=== PATIENT | female | born 1995 | race American Indian/Alaskan Native ===

== ENCOUNTER 2018-01-27 17:20 | Emergency (ER) | payer OTHER ==
[2018-01-27 17:22] VITALS: BMI 25.3
[2018-01-27] MEDS ORDERED: Sodium Chloride 0.9% 1,000 ML IV STA (17:40)
--- NOTE | 2018-01-27 18:10 | ED PDOC ---
Addendum entered and electronically signed by Tera Momin PA-C 01/30/18 17:37: Addendum Addendum: 01/30/18 17:36 Pt. discharge home with 3rd generation of cephalosporin, study show sensitive to the 1st and 4th generation and macrobid, discontinue vantin and start macrobid, pt. awared. I sent the macrobid to her desired pharmacy. Pt. stated that she feels well. Original Note: Arrival/HPI - General Historian: Patient - History of Present Illness Narrative History of Present Illness (Text): 01/27/18 17:47 Patient is a ([age]ins) with no past medical history presenting to the emergency room with a complaint of lower abdominal and right sided low back pain x 3 days. The right sided low back pain has been constant and getting progressively worse. The pain is sharp in nature and radiates up right side. The pain is worse with movement. She denies any trauma and has never experienced t his pain before. The abdominal pain is similar to her menstrual cramps but she recently complete her menstrual cycle 3 days ago and the pain started upon its completion. She has been urinating more frequently for the past 3-4 days but denies any burning or pain with urination. Denies vaginal bleeding or discharge. She is unsure if she is . Denies fevers, chills, nauseous, vomiting, diarrhea, constipation, chest pain, shortness of breath, headaches, vision changes, runny nose, sore throat, numbness or tingling. LMP: 01/22/18 Time/Duration: < week (3 days) Symptom Onset: Gradual Symptom Course: Worsening Quality: Stabbing <Trevor Florence - Last Filed: 01/27/18 18:35> <Lex Springer - Last Filed: 01/28/18 11:16> - General Chief Complaint: Abdominal Pain Time Seen by Provider: 01/27/18 17:21 Past Medical History - Provider Review Nursing Documentation Reviewed: Yes <Trevor Florence - Last Filed: 01/27/18 18:35> Family/Social History - Physician Review Nursing Documentation Reviewed: Yes <Trevor Florence - Last Filed: 01/27/18 18:35> Family/Social History: Unknown Family HX <Lex Springer - Last Filed: 01/28/18 11:16> Allergies/Home Meds <Trevor Florence - Last Filed: 01/27/18 18:35> <Lex Springer - Last Filed: 01/28/18 11:16> Allergies/Adverse Reactions: Allergies No Known Allergies Allergy (Verified 01/28/18 08:18) Review of Systems - Physician Review All systems were reviewed & negative as marked: Yes - Review of Systems Constitutional: Normal. absent: Fatigue, Fevers Eyes: Normal. absent: Vision Changes ENT: Normal. absent: Sore Throat, Rhinorrhea Respiratory: Normal. absent: SOB, Wheezing Cardiovascular: Normal. absent: Chest Pain, Edema Gastrointestinal: Abdominal Pain (suprapubic). absent: Constipation, Diarrhea, Nausea, Vomiting Genitourinary Female: Frequency (increased). absent: Dysuria, Hematuria, Vaginal Bleeding, Vaginal Discharge Musculoskeletal: Back Pain (right low back pain). absent: Neck Pain Skin: Normal. absent: Rash Neurological: Normal. absent: Headache, Dizziness Endocrine: Normal. absent: Diaphoresis Hemo/Lymphatic: Normal Psychiatric: Normal. absent: Anxiety <Trevor Florence - Last Filed: 01/27/18 18:35> Physical Exam Vital Signs Reviewed: Yes Temperature: Febrile (low) Blood Pressure: Normal Pulse: Tachycardic Respiratory Rate: Normal Appearance: Positive for: Well-Appearing, Non-Toxic Pain Distress: Mild Mental Status: Positive for: Alert and Oriented X 3 - Systems Exam Head: Present: Atraumatic, Normocephalic Extroacular Muscles: Present: EOMI Conjunctiva: Present: Normal Mouth: Present: Moist Mucous Membranes Nose (External): Present: Atraumatic Nose (Internal): Present: No Active Bleeding, Moist Neck: Present: Normal Range of Motion. No: JVD, Lymphadenopathy Respiratory/Chest: Present: Clear to Auscultation, Good Air Exchange. No: Respiratory Distress, Accessory Muscle Use, Wheezes, Rales, Rhonchi Cardiovascular: Present: Regular Rate and Rhythm, Normal S1, S2. No: Murmurs Abdomen: Present: Tenderness (suprapubic). No: Distention, Peritoneal Signs, Rebound, Guarding, McBurney's Point Tender, Rovsing's Sign Present Back: Present: Paraspinal Tenderness (right side, lumbar region), Other (tender in the posterior axillary line). No: CVA Tenderness, Midline Tenderness Upper Extremity: Present: Normal Inspection, NORMAL PULSES. No: Cyanosis, Edema Lower Extremity: Present: Normal Inspection, NORMAL PULSES. No: Edema, CALF TENDERNESS Neurological: Present: GCS=15, Speech Normal, Motor Func Grossly Intact Skin: Present: Warm, Dry, Normal Color. No: Rashes Lymphatic: No: Cervical Adenopathy Psychiatric: Present: Alert, Oriented x 3, Normal Insight, Normal Concentration <Trevor Florence - Last Filed: 01/27/18 18:35> Vital Signs Temp Pulse Resp BP Pulse Ox 01/27/18 17:20 99.8 F H 103 H 18 124/72 100 <Lex Springer - Last Filed: 01/28/18 11:16> Medical Decision Making ED Course and Treatment: 01/27/18 18:13 Patient is a (twins) with no past medical history presenting to the emergency room with a complaint of lower abdominal and right sided low back pain x 3 days. Physical exam reveals patient is tender to palpation on right side of low back with radiation of pain up posterior axillary line and suprapubic tenderness. Suspected musculoskeletal dysfunction and possible UTI labs Tylenol and NS 1 L bolus re-assess - Medication Orders Current Medication Orders: Sodium Chloride (Sodium Chloride 0.9%) 1,000 mls @ 1,000 mls/hr IV .Q1H STA Stop: 01/27/18 18:39 Discontinued Medications Acetaminophen (Tylenol 325mg Tab) 975 mg PO STAT STA Stop: 01/27/18 17:41 <Trevor Florence - Last Filed: 01/27/18 18:35> ED Course and Treatment: 01/27/18 20:09 guiac neg pt states known h/o of anemia. denies gi bleed. 01/28/18 11:15 pt seen with [facility]. ro uti vs pyelo vs stone. labs no leukocytosis. urine treated pt pain improved. states comfortable with outpt tiral for pyelo. strict return precautions advised. - Lab Interpretations Lab Results: 01/27/18 19:43 01/27/18 18:56 Lab Results 01/27/18 19:43: PT 14.2 H, INR 1.24, APTT 27.9 01/27/18 19:43: WBC 8.2, RBC 3.56, Hgb 9.8 L, Hct 30.0 L, MCV 84.3, MCH 27.5, MCHC 32.7, RDW 13.7, Plt Count 271, MPV 10.0, Gran % 73.4 H, Lymph % (Auto) 14.9 L, [place] % (Auto) 11.5 H, Eos % (Auto) 0.1 L, Baso % (Auto) 0.1, Gran # 6.01, Lymph # (Auto) 1.2, [place] # (Auto) 0.9 H, Eos # (Auto) 0.0, Baso # (Auto) 0.01 01/27/18 18:56: Sodium 137, Potassium 3.7, Chloride 104, Carbon Dioxide 25, Anion Gap 12, BUN 6 L, Creatinine 0.8, Est GFR ( Amer) > 60, Est GFR (Non-Af Amer) > 60, Random Glucose 105, Calcium 8.8, Magnesium 2.0, Total Bilirubin 1.5 H, AST 12 L, ALT 20, Alkaline Phosphatase 71, Total Protein 7.3, Albumin 3.8, Globulin 3.4, Albumin/Globulin Ratio 1.1, Lipase 13 L 01/27/18 18:21: Urine Color Light yellow, Urine Appearance Cloudy, Urine pH 6.0, Ur Specific [place] 1.020, Urine Protein 100 H, Urine Glucose (UA) Negative, Urine Ketones 40 H, Urine Blood Moderate H, Urine Nitrate Positive H, Urine Bilirubin Negative, Urine Urobilinogen 0.2, Ur Leukocyte Esterase Large H, Urine RBC 5 - 10, Urine WBC Tntc, Ur Epithelial Cells 3 - 4, Urine Bacteria Small, Urine HCG, Qual Negative - RAD Interpretation Radiology Orders: 01/27/18 18:40 ABD & PELVIS W/O PO OR IV CONT [CT] Stat - Medication Orders Current Medication Orders: Discontinued Medications Acetaminophen (Tylenol 325mg Tab) 975 mg PO STAT STA Stop: 01/27/18 17:41 Last Admin: 01/27/18 18:23 Dose: 975 mg MAR Pain/Vitals Document 01/27/18 18:23 EQ (Rec: 01/27/18 18:23 EQ [id number]) Pain Reassessment Is This A Pain ReAssessment? No Sleep Is patient sleeping during reassessment? No Presence of Pain Presence of Pain Yes Sodium Chloride (Sodium Chloride 0.9%) 1,000 mls @ 1,000 mls/hr IV .Q1H STA Stop: 01/27/18 18:39 Last Admin: 01/27/18 18:22 Dose: 1,000 mls/hr eMAR Start Stop Document 01/27/18 18:22 EQ (Rec: 01/27/18 18:22 EQ [id number]) Intravenous Solution Start Date 01/27/18 Start Time 18:22 Ceftriaxone Sodium (Rocephin 1 Gram Ivpb) 1 gm in 100 mls @ 100 mls/hr IVPB STAT STA; Protocol Stop: 01/27/18 20:03 Last Admin: 01/27/18 19:58 Dose: 100 mls/hr eMAR Start Stop Document 01/27/18 19:58 EQ (Rec: 01/27/18 19:58 EQ [id number]) Intravenous Solution Start Date 01/27/18 Start Time 19:58 <Lex Springer - Last Filed: 01/28/18 11:16> Disposition/Present on Arrival - Present on Arrival History of DVT/PE: No History of Uncontrolled Diabetes: No Urinary Catheter: No History of Decub. Ulcer: No History Surgical Site Infection Following: None <Trevor Florence - Last Filed: 01/27/18 18:35> - Present on Arrival Any Indicators Present on Arrival: No - Disposition Have Diagnosis and Disposition been Completed?: Yes Disposition Time: 08:00 <Lex Springer - Last Filed: 01/28/18 11:16> - Disposition Diagnosis: Pyelonephritis, Abdominal pain, Ovarian cyst Disposition: HOME/ ROUTINE Condition: STABLE Discharge Instructions (ExitCare): Urinary Tract Infections in Adults, Ovarian Cysts, Kidney Infection Additional Instructions: please follow up with your doctor. return to er with worsening symptoms or concerns. Prescriptions: RX: Cefpodoxime [Vantin] 100 mg PO BID #20 tab Referrals: [facility] [Outside] - Follow up with primary [facility] at [facility] [place] [Outside] - Follow up with primary [facility] [Outside] - Follow up with [facility] [Outside] - Follow up with primary Jluis Peña MD [Primary Care Provider] - Follow up with primary Forms: [employer] (Croatian)
[2018-01-27 18:28] VITALS: RESP 18; O2SAT 100
[2018-01-27 18:59] LABS: URINE BILIRUBIN NEGATIVE (NEGATIVE); URINE BLOOD MODERATE (NEGATIVE); URINE GLUCOSE (UA) NEGATIVE (NEGATIVE); URINE LEUKOCYTE ESTERASE LARGE Leu/uL (NEGATIVE); URINE PROTEIN 100 mg/dL (<30 mg/dL); URINE UROBILINOGEN 0.2 E.U./dL (<1 E.U./dL)
[2018-01-27 19:03] LABS: URINE APPEARANCE CLOUDY (CLEAR); URINE COLOR LIGHT YELLOW (YELLOW)
[2018-01-27] MEDS ORDERED: cefTRIAXone 1 gm 1 GM/100 ML BAG IVPB STA (19:04)
[2018-01-27 19:14] LABS: URINE BACTERIA SMALL (NEG); URINE WBC TNTC /hpf (0-6)
[2018-01-27 19:16] LABS: ALB/GLOB RATIO 1.1 (1.1-1.8); ALBUMIN 3.8 g/dL (3.0-4.8); ALT/SGPT 20 U/L (7-56); AST/SGOT 12 U/L (14-36); BLOOD UREA NITROGEN 6 mg/dL (7-21); CALCIUM 8.8 mg/dL (8.4-10.5); GFR NON-AFRICAN AMERICAN > 60; LIPASE 13 U/L (23-300)
[2018-01-27 19:16] LABS: HCG,QUALITATIVE URINE NEGATIVE (NEGATIVE)
[2018-01-27 20:01] LABS: BASO # 0.01 K/mm3 (0.0-2.0); BASO % 0.1 % (0.0-3.0); EOS % 0.1 % (1.5-5.0); GRAN # 6.01 (1.4-6.5); GRAN % 73.4 % (50.0-68.0); HEMOGLOBIN 9.8 g/dL (12.0-16.0); LYMPH # 1.2 (1.2-3.4); LYMPH % 14.9 % (22.0-35.0); MEAN CELL VOLUME 84.3 fl (80.0-105.0); MEAN CORPUSCULAR HEMOGLOBIN 27.5 pg (25.0-35.0); MEAN CORPUSCULAR HGB CONC 32.7 g/dl (31.0-37.0); MONO # 0.9 (0.1-0.6); MONO % 11.5 % (1.0-6.0); RBC 3.56 10^6/uL (3.5-6.1); RED CELL DISTRIBUTION WIDTH 13.7 % (11.5-14.5); WHITE BLOOD COUNT 8.2 10^3/ul (4.5-11.0)
[2018-01-27 20:05] LABS: INR 1.24; PROTHROMBIN TIME 14.2 SECONDS (9.4-12.5)
[2018-01-27 20:06] LABS: PARTIAL THROMBOPLASTIN TIME 27.9 Seconds (25.1-36.5)
[2018-01-27 20:45] VITALS: BP 106/55; PULSE 93; TEMP 98.6
--- NOTE | 2018-01-28 09:58 | CT ---
Date of service: 01/27/2018 PROCEDURE: CT Abdomen and Pelvis without intravenous contrast HISTORY: right flank pain COMPARISON: None. TECHNIQUE: Technique. Contrast dose: Radiation dose: Total exam DLP = 334.57 mGy-cm. This CT exam was performed using one or more of the following dose reduction techniques: Automated exposure control, adjustment of the mA and/or kV according to patient size, and/or use of iterative reconstruction technique. FINDINGS: LOWER THORAX: Unremarkable. LIVER: Unremarkable. No gross lesion or ductal dilatation. GALLBLADDER AND BILE DUCTS: Unremarkable. PANCREAS: Unremarkable. No gross lesion or ductal dilatation. SPLEEN: Unremarkable. ADRENALS: Unremarkable. No mass. KIDNEYS AND URETERS: Unremarkable. No hydronephrosis. No solid mass. VASCULATURE: Unremarkable. No aortic aneurysm. BOWEL: Unremarkable. No obstruction. No gross mural thickening. APPENDIX: Unremarkable. Normal appendix. PERITONEUM: There is a small amount of fluid in the cul-de-sac consistent with recent cyst rupture. Umbilical hernia containing nonobstructed large bowel. LYMPH NODES: Unremarkable. No enlarged lymph nodes. BLADDER: Unremarkable. REPRODUCTIVE: Unremarkable. BONES: No acute fracture. OTHER FINDINGS: The report concurs with the preliminary [facility] report IMPRESSION: No acute findings. No evidence of urolithiasis. Fluid in the cul-de-sac consistent with recent cyst rupture. Umbilical hernia containing nonobstructed large bowel.
== END 2018-01-27 21:00 | disposition home or self-care (01) ==
LOC: ED 17:20 → MERGE 17:20 → ED 21:00
DX: N12 Tubulo-interstitial nephritis, not specified as acute or chronic (principal); N83.209 Unspecified ovarian cyst, unspecified side; R10.9 Unspecified abdominal pain
CPT/HCPCS: 74176; 80053; 81001; 83690; 83735; 84703; 85025; 85610; 85730; 87086; 87181; 96374; 99283; J0696; J7030

== ENCOUNTER 2018-06-23 12:33 | Emergency (ER) | payer OTHER | END 2018-06-23 15:40 | disposition home or self-care (01) | LOC: ED 12:33 ==

== ENCOUNTER 2018-06-26 13:45 | Emergency (ER) | payer OTHER ==
[2018-06-26 13:45] VITALS: BMI 25.3
[2018-06-26 14:05] VITALS: BP 118/61; PULSE 80; RESP 18; TEMP 99.1; O2SAT 100
--- NOTE | 2018-06-26 19:17 | ED PDOC ---
Arrival/HPI - General Chief Complaint: Wound Check Time Seen by Provider: 06/26/18 13:48 Historian: Patient - History of Present Illness Narrative History of Present Illness (Text): 22 y/o tobacco smoking female with no significant PMH presents to the ED for wound check and packing removal s/p I&D here on 06/23. Pt is taking her antibiotics as prescribed. Admits to reduction in pain, but has discomfort when sitting. She has changed the dressing daily. Denies any significant wound drainage, worsening erythema, fever, chills, nausea, vomiting, diarrhea, rectal pain, dizziness, or any other associated complaints. Past Medical History - Provider Review Nursing Documentation Reviewed: Yes - Infectious Disease Hx of Infectious Diseases: None - Reproductive Menopause: No - Cardiac Hx Cardiac Disorders: No - Pulmonary Hx Respiratory Disorders: No - Neurological Hx Neurological Disorder: No - HEENT Hx HEENT Disorder: No - Renal Hx Renal Disorder: No - Endocrine/Metabolic Hx Endocrine Disorders: No - Hematological/Oncological Hx Blood Disorders: No - Integumentary Hx Dermatological Disorder: No - Musculoskeletal/Rheumatological Hx Musculoskeletal Disorders: No - Gastrointestinal Hx Gastrointestinal Disorders: No - Genitourinary/Gynecological Hx Genitourinary Disorders: Yes Hx Urinary Tract Infection: Yes - Psychiatric Hx Psychophysiologic Disorder: No Hx Substance Use: No - Surgical History Hx Section: Yes - Anesthesia Hx Anesthesia: No Hx Anesthesia Reactions: No Hx Malignant Hyperthermia: No Family/Social History - Physician Review Nursing Documentation Reviewed: Yes Family/Social History: No Known Family HX Smoking Status: Heavy Smoker > 10 Cigarettes Daily Hx Alcohol Use: No Hx Substance Use: No Allergies/Home Meds Allergies/Adverse Reactions: Allergies No Known Allergies Allergy (Verified 06/23/18 12:57) Review of Systems - Review of Systems Constitutional: Normal. absent: Fevers Eyes: Normal. absent: Vision Changes, Photophobia Respiratory: Normal. absent: SOB, Cough Cardiovascular: Normal. absent: Chest Pain, Palpitations Gastrointestinal: Normal. absent: Abdominal Pain, Stool Changes, Nausea, Vomiting, Appetite Changes Genitourinary Female: Normal. absent: Dysuria, Frequency Musculoskeletal: Normal. absent: Arthralgias, Back Pain, Neck Pain Skin: Abscess Neurological: Normal. absent: Headache, Dizziness Endocrine: Normal Hemo/Lymphatic: Normal Psychiatric: Normal Physical Exam Vital Signs Reviewed: Yes Vital Signs Temp Pulse Resp BP Pulse Ox 06/26/18 14:01 99.1 F 80 18 118/61 100 06/26/18 13:45 98 F 85 19 124/83 100 Temperature: Afebrile Blood Pressure: Normal Pulse: Regular Respiratory Rate: Normal Appearance: Positive for: Well-Appearing, Non-Toxic, Comfortable Pain Distress: None Mental Status: Positive for: Alert and Oriented X 3 - Systems Exam Head: Present: Atraumatic, Normocephalic Pupils: Present: PERRL Extroacular Muscles: Present: EOMI Conjunctiva: Present: Normal Mouth: Present: Moist Mucous Membranes Neck: Present: Normal Range of Motion. No: Meningeal Signs Respiratory/Chest: Present: Clear to Auscultation, Good Air Exchange. No: Respiratory Distress, Accessory Muscle Use Cardiovascular: Present: Regular Rate and Rhythm, Normal S1, S2 Abdomen: Present: Other (soft). No: Tenderness, Distention, Peritoneal Signs Back: Present: Normal Inspection Upper Extremity: Present: Normal Inspection, Normal ROM, NORMAL PULSES, Neurovascularly Intact, Temperature Abnormalties. No: Cyanosis, Edema Lower Extremity: Present: NORMAL PULSES, Normal ROM, Temperature Abnormalties, Neurovascularly Intact, Capillary Refill < 2 s, Other (abscess s/p I&D left buttock - see skin exam) Neurological: Present: GCS=15, CN II-XII Intact, Speech Normal, Motor Func Grossly Intact, Normal Sensory Function Skin: Present: Warm, Dry, Normal Color, Other (wound to left lower buttock s/p I&D, packing in place. [id number] area of surrounding induration, no erythema, no warmth, no drainage, no fluctuance) Psychiatric: Present: Alert, Oriented x 3, Normal Insight, Normal Concentration, Normal Affect, Normal Mood Medical Decision Making ED Course and Treatment: Initial Plan: * Packing removal * Irrigation Improvement noted from last visit. Decreased erythema and induration. Pt reports decreased pain and tenderness. Packing removed without difficulty. Cavity irrigated with 100cc NS. Re-dressed with sterile dressing. Wound care instructions discussed. Wound culture from prior visit grew MRSA, susceptible to Bactrim. Pt notified, states she is taking antibiotics as prescribed. Advised continuation with antibiotics until completion of 1 week course and followup with PMD. Plan of care discussed with patient. Strict instructions given regarding prescription use, importance of followup, and signs/symptoms to return to ER i ncluding or any other new/worsening symptoms. Pt verbalized understanding of discussion. Patient is A&Ox3, ambulating with steady gait, with vital signs stable for discharge. Disposition/Present on Arrival - Present on Arrival Any Indicators Present on Arrival: No History of DVT/PE: No History of Uncontrolled Diabetes: No Urinary Catheter: No History of Decub. Ulcer: No History Surgical Site Infection Following: None - Disposition Have Diagnosis and Disposition been Completed?: Yes Diagnosis: Wound check, abscess Disposition: HOME/ ROUTINE Disposition Time: 14:05 Patient Plan: Discharge Condition: IMPROVED Discharge Instructions (ExitCare): Abscess Incision and Drainage (DC) Additional Instructions: Continue antibiotics as prescribed Keep area dry and covered Area can get wet, but do not soak Followup with primary doctor within 2 days Return to ER with any new/worsening symptoms Referrals: [facility] [place] [Outside] - Follow up with primary Ashlyn Urias MD [Medical Doctor] - Follow up with primary Forms: [employer] (Serbian), WORK NOTE
== END 2018-06-26 14:56 | disposition home or self-care (01) ==
LOC: ED 13:45
DX: Z48.817 Encounter for surgical aftercare following surgery on the skin and subcutaneous tissue (principal)